=== PATIENT | male | born 2000 | race American Indian/Alaskan Native ===

== ENCOUNTER 2021-05-28 19:31 | Emergency (ER) | payer SELFPAY ==
[2021-05-28] MEDS ORDERED: MORPHINE 4 MG/1 ML INJ IV ONE (20:58)
[2021-05-28] MEDS ORDERED: ONDANSETRON 4 MG/2 ML INJ IV ONE (20:59)
[2021-05-28 21:17] LABS: Basophils % (Auto) 0.5 % (0.0-1.8); Eosinophils % (Auto) 0.3 % (0.0-4.3); Hematocrit 27.1 % (35.5-45.6); Hemoglobin 8.8 gm/dl (11.8-15.2); Lymphocytes # (Auto) 0.3 K/mm3 (1.2-5.4); Lymphocytes % (Auto) 5.1 % (13.4-35.0); Mean Corpuscular HGB Conc 32 % (32-34); Mean Corpuscular Volume 78 fl (84-94); Monocytes # (Auto) 0.7 K/mm3 (0.0-0.8); Monocytes % (Auto) 10.6 % (0.0-7.3); Platelet Count 421 K/mm3 (140-440); Red Blood Count 3.48 M/mm3 (3.65-5.03); Red Cell Distribution Width 18.4 % (13.2-15.2)
[2021-05-28 21:43] LABS: Alanine Aminotransferase 24 units/L (7-56); Albumin 3.2 g/dL (3.9-5); Blood Urea Nitrogen 7 mg/dL (9-20); Calcium 9.3 mg/dL (8.4-10.2); Hemolysis Index 0
[2021-05-28 21:44] LABS: BUN/Creatinine Ratio 12
--- NOTE | 2021-05-28 22:37 | Cat Scan Report ---
CT ABDOMEN AND PELVIS WITH CONTRAST HISTORY: Stage IV: Liver cancer, abdominal and back pain. COMPARISON: None. TECHNIQUE: CT images of the abdomen and pelvis were obtained following administration of intravenous contrast. All CT scans at this location are performed using CT dose reduction for ALARA by means of automated exposure control. CONTRAST: 100 ml of intravenous contrast administered. FINDINGS: Lungs/bones: Multiple pulmonary nodules are seen within the lower lungs bilaterally. Nodules measure up to 6 mm. Mild atelectasis in the lower lungs as well. Abdomen/pelvis: Marked irregularity throughout the liver with multiple liver lesions. The entire rig ht hepatic lobe appears filled with lesions is enlarged. Diffuse fatty infiltration. Multiple liver l esions in the caudate left hepatic lobe as well. Visualized adrenal glands appear normal. Pancreas an d spleen are unremarkable. There is some mass effect on the right kidney from the large liver however visualized portions of the right left kidney are grossly unremarkable. Prominent vessels in the left renal hilum. Portal hepatic region is difficult to evaluate. Marked enlargement of the caudate lobe measures visualization limited. Fracture and effacement of the IVC is noted. Bowel loops are difficult to evaluate due to paucity of intra-abdominal fat. No bowel obstruction is seen. There is free fluid in the pelvis. There may be some thickening of the distal sigmoid colon and rectum.. Mild scoliotic curvature the spine IMPRESSION: 1. Multiple liver lesions with markedly enlarged liver suggestive of diffuse liver carcinoma with met astatic disease. There is also metastatic disease with pulmonary nodules bilaterally. There are large liver causes compression of the right kidney and rochelle hepatic region is not well evaluated. 2. Free fluid in the pelvis. No bowel obstruction. There may be some thickening of the distal sigmoid colon and rectum. Signer Name: Mauri Tinsley MD Signed: 05/28/2021 10:32 PM Workstation Name: [id number]
--- NOTE | 2021-05-28 23:00 | Emergency Department Report ---
ED Abdominal Pain HPI - General Chief Complaint: Abdominal Pain Stated Complaint: LIVER/BACK PAIN Time Seen by Provider: 05/28/21 20:52 Source: patient Mode of arrival: Ambulatory Limitations: No Limitations - History of Present Illness Initial Comments: Chief complaint: "My liver hurts." HPI: This is a 21-year-old male with history of stage IV: Liver cancer diagnosed last year. Last chemotherapy session last month. Patient lives near [facility]. He moved to the [place] area to live with a cousin. He is unclear of his treatment wishes. He does want to be comfortable at this time. He underwent tumor resection last year. He has severe right upper quadrant pain radiating to his back. His family is located in [place]. He has not establish care here in [place]. MD Complaint: abdominal pain -: Gradual, days(s) (1 day) Location: RUQ Radiation: back Severity: severe Severity scale (0 -10): 9 Quality: sharp Consistency: constant Improves With: nothing Worsens With: nothing Associated Symptoms: denies other symptoms - Related Data Previous Rx's Medication Instructions Recorded Last Taken Type Ondansetron [Zofran Odt] 4 mg PO Q8HR PRN #10 tab.rapdis 05/28/21 Unknown Rx oxyCODONE /ACETAMINOPHEN [Percocet 1 tab PO Q6HR PRN #15 tablet 05/28/21 Unknown Rx 5/325] Allergies Allergy/AdvReac Type Severity Reaction Status Date / Time No Known Allergies Allergy Verified 05/28/21 21:26 ED Review of Systems ROS: Stated complaint: LIVER/BACK PAIN Other details as noted in HPI Comment: All other systems reviewed and negative Constitutional: denies: chills, fever, malaise Respiratory: denies: cough, shortness of breath Gastrointestinal: abdominal pain. denies: nausea, vomiting, diarrhea, constipation Skin: denies: rash, lesions Neurological: denies: headache ED Past Medical Hx - Past Medical History Previous Medical History?: Yes Additional medical history: Stage 4 Liver cancer, colon cancer - Surgical History Past Surgical History?: Yes Additional Surgical History: surgery r/t colon cancer - Social History Smoking Status: Never Smoker Substance Use Type: None - Medications Home Medications: Home Medications Medication Instructions Recorded Confirmed Last Taken Type Ondansetron [Zofran Odt] 4 mg PO Q8HR PRN #10 tab.rapdis 05/28/21 Unknown Rx oxyCODONE /ACETAMINOPHEN [Percocet 1 tab PO Q6HR PRN #15 tablet 05/28/21 Unknown Rx 5/325] ED Physical Exam - General Limitations: No Limitations General appearance: alert, in no apparent distress - Head Head exam: Present: atraumatic, normocephalic - Eye Eye exam: Present: normal appearance - ENT ENT exam: Present: mucous membranes moist - Neck Neck exam: Present: normal inspection, full ROM - Respiratory Respiratory exam: Present: normal lung sounds bilaterally. Absent: respiratory distress, wheezes, rales - Cardiovascular Cardiovascular Exam: Present: regular rate, normal rhythm. Absent: systolic murmur, diastolic murmur, rubs, gallop - GI/Abdominal GI/Abdominal exam: Present: soft, distended, normal bowel sounds, other (Right upper quadrant dull to percussion). Absent: tenderness, guarding, rebound - Rectal Rectal exam: Present: deferred - Extremities Exam Extremities exam: Present: normal inspection - Neurological Exam Neurological exam: Present: alert, oriented X3 - Psychiatric Psychiatric exam: Present: normal affect, normal mood - Skin Skin exam: Present: warm, dry, intact, normal color. Absent: rash ED Course Vital Signs 05/28/21 05/28/21 05/28/21 18:00 18:16 18:30 Temperature Pulse Rate 83 85 85 Respiratory 14 16 23 Rate Blood Pressure 137/92 137/92 O2 Sat by Pulse 98 98 Oximetry 05/28/21 05/28/21 05/28/21 19:56 20:43 20:45 Temperature 100.3 F H Pulse Rate 123 H 110 H 114 H Respiratory 15 37 H 28 H Rate Blood Pressure 137/78 124/77 O2 Sat by Pulse 99 100 100 Oximetry 05/28/21 05/28/21 21:01 21:15 Temperature Pulse Rate 113 H 110 H Respiratory 33 H 34 H Rate Blood Pressure 124/77 137/92 O2 Sat by Pulse 100 100 Oximetry ED Medical Decision Making - Lab Data Result diagrams: 05/28/21 21:04 05/28/21 21:04 - Radiology Data Radiology results: report reviewed Patient Name: LALI SHERWOOD Gender: Male Date of : 2000 Referring Provider: HARMEET CONN Organization: [facility] Accession Number: [id number] Requested Date: May 28, 2021 22:18 Report Status: Final Requested Procedure: 1 Procedure Description: CT abdomen pelvis w con Modality: CT Findings Reporting MD: Mauri Tinsley Dictation Time: May 28, 2021 21:32 [employer] Member: Not available Software Development Coordinator Date: CT ABDOMEN AND PELVIS WITH CONTRAST HISTORY: Stage IV: Liver cancer, abdominal and back pain. COMPARISON: None. TECHNIQUE: CT images of the abdomen and pelvis were obtained following administration of intravenous contrast. All CT scans at this location are performed using CT dose reduction for ALARA by means of automated exposure control. CONTRAST: 100 ml of intravenous contrast administered. FINDINGS: Lungs/bones: Multiple pulmonary nodules are seen within the lower lungs bilaterally. Nodules measure up to 6 mm. Mild atelectasis in the lower lungs as well. Abdomen/pelvis: Marked irregularity throughout the liver with multiple liver lesions. The entire right hepatic lobe appears filled with lesions is enlarged. Diffuse fatty infiltration. Multiple liver lesions in the caudate left hepatic lobe as well. Visualized adrenal glands appear normal. Pancreas and spleen are unremarkable. There is some mass effect on the right kidney from the large liver however visualized portions of the right left kidney are grossly unremarkable. Prominent vessels in the left renal hilum. Portal hepatic region is difficult to evaluate. Marked enlargement of the caudate lobe measures visualization limited. Fracture and effacement of the IVC is noted. Bowel loops are difficult to evaluate due to paucity of intra-abdominal fat. No bowel obstruction is seen. There is free fluid in the pelvis. There may be some thickening of the distal sigmoid colon and rectum.. Mild scoliotic curvature the spine IMPRESSION: 1. Multiple liver lesions with markedly enlarged liver suggestive of diffuse liver carcinoma with metastatic disease. There is also metastatic disease with pulmonary nodules bilaterally. There are large liver causes compression of the right kidney and rochelle hepatic region is not well evaluated. 2. Free fluid in the pelvis. No bowel obstruction. There may be some thickening of the distal sigmoid colon and rectum. Signer Name: Mauri Tinsley MD Signed: 05/28/2021 9:32 PM Workstation Name: [id number] - Medical Decision Making Cancer related pain due to stage IV cancer likely colorectal involving the liver appears to have metastasis to the lungs. I have given patient verbal and written education. I recommended establishing oncological care at least for palliative treatment. I will prescribe Percocet and Zofran. Work-up notable for anemia chemistry unremarkable. I have referred patient to oncologist. Critical care attestation.: If time is entered above; I have spent that time in minutes in the direct care of this critically ill patient, excluding procedure time. ED Disposition Clinical Impression: Cancer related pain, Metastatic colon cancer to liver Disposition: HOME / SELF CARE / HOMELESS Is pt being admited?: No Does the pt Need Aspirin: No Condition: Stable Prescriptions: oxyCODONE /ACETAMINOPHEN [Percocet 5/325] 1 tab PO Q6HR PRN #15 tablet PRN Reason: Pain Ondansetron [Zofran Odt] 4 mg PO Q8HR PRN #10 tab.rapdis PRN Reason: Nausea Referrals: YISEL ROBIN MD [Referring] - 3-5 Days OMAYRA MAXWELL MD [Referring] - 3-5 Days
[2021-05-28] MEDS ORDERED: ONDANSETRON 4 MG ODT TAB PO ONE (23:05)
[2021-05-28] MEDS ORDERED: oxyCODONE /ACETAMINOPHEN 5-325MG TAB PO ONE (23:05)
[2021-05-28 23:38] VITALS: BP 118/75
== END 2021-05-28 23:40 | disposition home or self-care (01) ==
LOC: ED 19:31
DX: G89.3 Neoplasm related pain (acute) (chronic) (principal); C18.9 Malignant neoplasm of colon, unspecified; C78.7 Secondary malignant neoplasm of liver and intrahepatic bile duct; M54.9 Dorsalgia, unspecified; Z98.890 Other specified postprocedural states
CPT/HCPCS: 36415; 74177; 80053; 83690; 85025; 96374; 96375; 99284; J2270; J2405; Q9967; Q0162